=== PATIENT | male | born 2000 ===

== ENCOUNTER 2019-01-02 17:10 | Emergency (ER) | payer BC, OTHER ==
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
[2019-01-02] MEDS ORDERED: Bacitracin Zinc 1 Packet ONE (18:03)
[2019-01-02] MEDS ORDERED: Ibuprofen 800 MG TAB ONE (18:03)
== END 2019-01-02 18:13 | disposition home or self-care (01) ==
LOC: BURERS 17:10
DX: S16.1XXA Strain of muscle, fascia and tendon at neck level, initial encounter (principal); S20.212A Contusion of left front wall of thorax, initial encounter; V44.6XXA Car passenger injured in collision with heavy transport vehicle or bus in traffic accident, initial encounter
CPT/HCPCS: 71046; 72125; G0390